=== PATIENT | female | born 1990 | race Caucasian/White ===

== ENCOUNTER 2021-03-25 15:29 | Inpatient (IN) ==
[2021-03-25] MEDS ORDERED: OXYTOCIN 30 UNITS/500 ML BAG IV PRN (22:59)
[2021-03-25 23:29] LABS: Hemoglobin 12.8 g/dL (12.0-16.0); Mean Corpuscular Hemoglobin 31.5 pg (25-34); Mean Corpuscular Hgb Conc 34.6 g/dL (32-36); Mean Corpuscular Volume 91.1 fL (80-100); Mean Platelet Volume 11.3 fL (7.4-10.4); Platelet Count 208 K/uL (130-400); RDW Standard Deviation 43.6 fL (36.4-46.3); Red Blood Count 4.06 M/uL (4.2-5.4); White Blood Count 9.37 K/uL (4.8-10.8)
[2021-03-25] MEDS ORDERED: DINOPROSTONE 10 MG INSERT PV ONE (23:45)
[2021-03-25 23:57] LABS: Alanine Aminotransferase 46 U/L (12-78); Albumin Level 2.2 gm/dl (3.4-5.0); Aspartate Aminotransferase 29 U/L (15-37); BUN Creatinine Ratio 16.2 (10-20); Blood Urea Nitrogen 8 mg/dl (7-18); Calcium 8.5 mg/dl (8.5-10.1); Carbon Dioxide 23 mmol/L (21-32); Chloride 109 mmol/L (98-107); Creatinine Clr Calc Pharmacy 207.8 ml/min; Est GFR (African American) > 150.0 ml/min; Est GFR (Non-African American) 135.4 ml/min; Glucose 104 mg/dl (70-99); Potassium 2.9 mmol/L (3.5-5.1); Sodium 140 mmol/L (136-145)
--- NOTE | 2021-03-26 | Progress Note ---
Date of Service March 25, 2021 Assessment & Plan Admission and Anticipated Discharge Date Admission Date: March 25, 2021 Subjective Pt admitted for mild preeclampsia FHR; CAT1 Ctx Minimal VE; Cervidil placed Results & Data ([facility]) Vital Signs (Past 12 Hours) Vital Signs Temp Pulse Resp BP 03/25/21 22:38 36.5 C 75 16 138/93
[2021-03-26 00:02] LABS: Albumin Globulin Ratio 0.6 (0.9-2); Alkaline Phosphatase 103 U/L (45-117); Bilirubin,Total 0.5 mg/dl (0.2-1); Globulin 3.7 gm/dl (2.5-4.0); Total Protein 5.9 gm/dl (6.4-8.2)
[2021-03-26] MEDS: LACTATED RINGER'S 1,000 ML IV PRN ×2 (14:40→16:53)
[2021-03-26] MEDS ORDERED: OXYTOCIN 30 UNITS/500 ML BAG IV PRN ×2 (14:54→19:19)
--- NOTE | 2021-03-26 14:54 | Labor Progress Brief Note ---
Date of Service March 26, 2021 Assessment & Plan Admission and Anticipated Discharge Date Admission Date: March 25, 2021 Physical Exam Genitourinary: OB Exam Abdomen: + estimated weight (7.5-8 lbs.) Manual OB Exam: + cervical dilation 3 cm and 4 cm, + cervical effacement 70% and + station -2 OB Exam Monitor Tracing: + external FHT monitor used, + external uterine monitor used, + category I and + normal FHT variability attempted ROM with no fluid. Will start Oxytocin to augment contractions. Results & Data ([facility]) Vital Signs (Past 12 Hours) Vital Signs Temp Pulse Resp BP 03/26/21 14:39 70 139/84 03/26/21 11:08 63 142/94 H 03/26/21 11:06 36.7 C 03/26/21 11:05 70 142/96 H 03/26/21 10:26 71 20 137/93 03/26/21 09:26 58 L 142/92 H 03/26/21 07:10 36.5 C 20 03/26/21 07:05 67 137/85 03/26/21 04:19 36.8 C 77 16 142/84 H
[2021-03-26] MEDS ORDERED: OXYTOCIN 30 UNITS/500 ML BAG IV SCH (15:00)
[2021-03-26] MEDS ORDERED: ePHEDrine sulfate 50 MG/ML AMP ONE (16:02)
[2021-03-26] MEDS ORDERED: fentaNYL citrate 100 MCG/2 ML VIAL ONE (16:02)
[2021-03-26] MEDS ORDERED: BUPIVACAINE 0.25% 30 ML VIAL ONE (16:02)
[2021-03-26] MEDS ORDERED: SODIUM CHLORIDE 0.9% INJ 10 ML VIAL ONE (16:02)
[2021-03-26] MEDS ORDERED: fentaNYL 2MCG/ML ROPIVACAINE 1.25MG/ML 100 ML BAG EPI ONE (16:03)
--- NOTE | 2021-03-26 16:20 | Anesthesiology Consultation ---
Date of Service March 26, 2021 Assessment & Plan Chart Review Chart Review: Acceptable Risk for Surgery, Patient NOT seen in Pre Admission Testing and Acceptable Risk for Labor Epidural Consults Requested none ASA ASA3 Proposed Anesthesia Anesthesia Type: Labor Epidural and CSE Risk / Benefits Reviewed With: PT / POA / Parent / Guardian, Accepts Plan and Informed Consent Obtained Additional Comments: covid test negative History Height/Weight Height: 5 ft 5 in Weight: 95.254 kg Allergies Allergy/AdvReac Type Severity Reaction Status Date / Time No Known Allergies Allergy Verified 07/19/18 01:02 Medications Home Medications Medication Instructions Recorded Confirmed Last Taken 1 tabs PO DAILY 06/26/18 03/25/21 03/25/21 aspirin [Baby Aspirin] 81 mg PO DAILY 03/25/21 03/25/21 03/25/21 Active Medications Generic Name Dose Route Start Last Admin Trade Name Freq PRN Reason Stop Dose Admin Lactated Ringer's 1,000 mls @ 125 mls/hr 03/25/21 22:59 03/26/21 15:55 Lr IV 03/27/21 22:58 999 mls/hr .Q8H PRN Infusion L&D Protocol Protocol Oxytocin 30 units in 500 mls @ 1 mls/hr 03/26/21 14:54 03/26/21 15:09 Pitocin IV 03/28/21 14:53 0.06 units/hr .Q24H PRN 1 mls/hr Labor Induction/Augmentation Administration Protocol 0.06 UNITS/HR NPO Date Last Intake of Fluids: 03/26/21 Time Last Intake of Fluids: 15:00 Date Last Intake of Solids: 03/26/21 Time Last Intake of Solids: 12:00 Past Medical History Medical History with 36 completed weeks gestation Exercise / Class Metabolic Activity II 4-5 Yardwork/Stairs/Walk up hill Past Family History Family History Grandfather Family history of diabetes mellitus Cancer Grandmother Family history of diabetes mellitus Past Surgical History Surgical History Cyst of ear canal Past Anesthesia History No Hx of Anesthesia Complications and No Family Hx of Anesthesia Complications History of PONV No Hx of PONV and No Hx of Motion Sickness Social History Smoking Status: Never smoker Hx Alcohol Use: No Hx Substance Use: No Physical Exam Vital Signs Last Vital Signs Temp 36.7 C 03/26/21 11:06 Pulse 63 03/26/21 16:12 Resp 20 03/26/21 10:26 BP 139/84 03/26/21 14:39 Pulse Ox 98 03/26/21 16:12 Constitutional + obese and + edematous ENMT Mouth: no dentition abnormality Thyromental Distance: < 3.5 Finger Breadths Mallampati Class: II Neck normal visual inspection and trachea midline; neck extension not limited Respiratory normal respiratory effort Auscultation: lungs clear to auscultation bilaterally Cardiovascular Rate/Rhythm: regular rate and regular rhythm Heart Sounds: no murmur Vessels: no carotid bruit Musculoskeletal Spine: lumbar spine normal to inspection; normal cervical ROM Neurologic moves all extremities Motor/Sensory: no sensory deficit Psychiatric Orientation: alert and oriented x 3 Testing Laboratory Results 03/25/21 23:16 03/25/21 23:31
[2021-03-26] MEDS ORDERED: ePHEDrine sulfate 50 MG/ML AMP IV PRN (16:58)
[2021-03-26] MEDS ORDERED: fentaNYL 2MCG/ML ROPIVACAINE 1.25MG/ML 100 ML BAG EPI PRN (16:58)
[2021-03-26] MEDS ORDERED: NALOXONE HCL 0.4 MG/1 ML VIAL/CARP IV PRN (16:58)
[2021-03-26] MEDS ORDERED: PROMETHAZINE HCL 25 MG in SODIUM CHLORIDE 0.9% 50 ML IV PRN (16:58)
[2021-03-26] MEDS ORDERED: ONDANSETRON INJ 2 MG/ML 2 ML VIAL IV PRN (16:58)
[2021-03-26] MEDS ORDERED: diphenhydrAMINE 50 MG/ML VIAL IV PRN (16:58)
[2021-03-26] MEDS ORDERED: NALOXONE HCL 1 MG in SODIUM CHLORIDE 0.9% 1000ML 1,000 ML IV PRN (16:58)
--- NOTE | 2021-03-26 17:03 | Labor Progress Brief Note ---
Date of Service March 26, 2021 Assessment & Plan Admission and Anticipated Discharge Date Admission Date: March 25, 2021 Physical Exam Genitourinary: Manual OB Exam: + cervical dilation 5 cm, + cervical effacement 70%, + station -1 and + amniotic fluid clear OB Exam Monitor Tracing: + external FHT monitor used, + external uterine monitor used, + category I and + normal FHT variability epidural in place Results & Data ([facility]) Vital Signs (Past 12 Hours) Vital Signs Temp Pulse Resp BP Pulse Ox 03/26/21 17:00 86 97 03/26/21 16:59 69 139/84 03/26/21 16:56 65 134/85 03/26/21 16:55 66 98 03/26/21 16:53 66 130/85 03/26/21 16:50 67 131/86 97 03/26/21 16:45 70 97 03/26/21 16:40 71 98 03/26/21 16:35 67 99 03/26/21 16:30 104 H 98 03/26/21 16:25 66 98 03/26/21 16:20 82 98 03/26/21 16:12 63 98 03/26/21 14:39 70 139/84 03/26/21 11:08 63 142/94 H 03/26/21 11:06 36.7 C 03/26/21 11:05 70 142/96 H 03/26/21 10:26 71 20 137/93 03/26/21 09:26 58 L 142/92 H 03/26/21 07:10 36.5 C 20 03/26/21 07:05 67 137/85
[2021-03-26] MEDS ORDERED: BENZOCAINE 20% AER SPR 82.5 GM CAN EXT PRN (19:19)
[2021-03-26] MEDS ORDERED: ACETAMINOPHEN 325 MG TAB PO PRN (19:19)
[2021-03-26] MEDS ORDERED: bisacodyL 10 MG SUPP PR PRN (19:19)
[2021-03-26] MEDS ORDERED: HYDROCORTISONE ACETATE 25 MG SUPP PR PRN (19:19)
[2021-03-26] MEDS ORDERED: SUPERCREAM 0.870% 15 GM JAR EXT PRN (19:19)
--- NOTE | 2021-03-26 19:21 | Delivery Summary ---
Vaginal Delivery Summary Date of Service March 26, 2021 Vaginal Delivery Summary Delivery Note live female VANI over intact perineum with delayed cord clamping and Apgars 8/9 weight pending. Cord blood obtained followed by spontaneous delivery of intact placenta. No tears. EBL 250 ml. Final sponge and instrument count are correct. Mom and baby stable. Stright cath used to empty the bladder at end of procedure.
--- NOTE | 2021-03-26 19:38 | Anesthesia Procedure Note ---
Date of Service March 26, 2021 Anesthesia Post Epidural Note Vital Signs Vital Signs: Temp Pulse Resp BP Pulse Ox 36.9 C 70 18 143/85 H 96 03/26/21 19:15 03/26/21 19:30 03/26/21 19:30 03/26/21 19:30 03/26/21 19:10 Pain Intensity Lower Abdomen: Pain Intensity: 0 Notes Mental Status: alert / awake / arousable Nausea / Vomiting: adequately controlled Pain: adequately controlled Airway Patency, RR, SpO2: stable & adequate BP & HR: stable & adequate Hydration State: stable & adequate Neuraxial Anesthesia: was administered and sensory block is resolving Anesthetic Complications: no major complications apparent Epidural: Removed without complications and With tip intact
[2021-03-26] MEDS: DOCUSATE SODIUM 100 MG CAP PO SCH (22:21)
[2021-03-27] MEDS: IBUPROFEN 600 MG TAB PO PRN ×4 (04:02→21:14)
[2021-03-27 06:16] LABS: Hematocrit (blood only) 35.2 % (37-47); Mean Corpuscular Hemoglobin 31.2 pg (25-34); Mean Corpuscular Hgb Conc 34.1 g/dL (32-36); Mean Corpuscular Volume 91.4 fL (80-100); Mean Platelet Volume 11.6 fL (7.4-10.4); Platelet Count 199 K/uL (130-400); RDW Standard Deviation 43.5 fL (36.4-46.3); Red Blood Count 3.85 M/uL (4.2-5.4); White Blood Count 12.73 K/uL (4.8-10.8)
[2021-03-27] MEDS: DOCUSATE SODIUM 100 MG CAP PO SCH ×2 (08:00→21:09)
[2021-03-27] MEDS: PRENATAL VITAMIN 1 TAB PO SCH (08:00)
[2021-03-27] MEDS: LABETALOL HCL 100 MG TAB PO SCH ×2 (08:39→21:09)
[2021-03-27] MEDS ORDERED: PRENATAL PO SCH (09:00)
[2021-03-27] MEDS ORDERED: DIPHTHERIA/TETANUS/PERTUSSIS 0.5 ML SYR/VIAL IM ONE (09:00)
--- NOTE | 2021-03-27 10:15 | Obstetrical Progress Note ---
Date of Service March 27, 2021 Subjective Ambulation: ambulating normally Voiding: no voiding problems Passing Gas:: Yes Diet Tolerance:: regular diet Lochia:: Small Feeding Type:: breast feeding no headaches or blurred vision minimal edema will start Labetalol for elevated BP Results & Data ([facility]) Vital Signs (Past 12 Hours) Vital Signs Temp Pulse Resp BP BP Pulse Ox 03/27/21 08:00 62 161/97 H 03/27/21 07:05 36.7 C 66 20 157/103 H 98 03/27/21 03:40 36.7 C 69 18 140/89 03/26/21 22:45 36.8 C 79 18 137/84 98 Laboratory Results 03/25/21 03/25/21 03/25/21 22:37 22:37 23:16 WBC 9.37 RBC 4.06 L Hgb 12.8 Hct 37.0 MCV 91.1 MCH 31.5 MCHC 34.6 RDW Std Deviation 43.6 RDW Coeff of Praveena 13.0 Plt Count 208 MPV 11.3 H Sodium Potassium Chloride Carbon Dioxide Anion Gap BUN Creatinine Est Cr Clr Drug Dosing Est GFR ( Amer) Est GFR (Non-Af Amer) BUN/Creatinine Ratio Glucose Calcium Total Bilirubin AST ALT Alkaline Phosphatase Total Protein Albumin Globulin Albumin/Globulin Ratio COVID-19 Eval Order Covid19 [facility] SARS-CoV-2, RNA, NAAT NEGATIVE 03/25/21 03/27/21 23:31 06:03 WBC 12.73 H RBC 3.85 L Hgb 12.0 Hct 35.2 L MCV 91.4 MCH 31.2 MCHC 34.1 RDW Std Deviation 43.5 RDW Coeff of Praveena 13.0 Plt Count 199 MPV 11.6 H Sodium 140 Potassium 2.9 L Chloride 109 H Carbon Dioxide 23 Anion Gap 8.0 BUN 8 Creatinine 0.46 L Est Cr Clr Drug Dosing 207.8 Est GFR ( Amer) > 150.0 Est GFR (Non-Af Amer) 135.4 BUN/Creatinine Ratio 16.2 Glucose 104 H Calcium 8.5 Total Bilirubin 0.5 AST 29 ALT 46 Alkaline Phosphatase 103 Total Protein 5.9 L Albumin 2.2 L Globulin 3.7 Albumin/Globulin Ratio 0.6 L COVID-19 Eval Order SARS-CoV-2, RNA, NAAT
[2021-03-27] MEDS ORDERED: bisacodyL 5 MG TABEC PO SCH (20:00)
[2021-03-28 06:30] LABS: Hematocrit (blood only) 34.3 % (37-47); Hemoglobin 11.4 g/dL (12.0-16.0); Mean Corpuscular Hemoglobin 30.7 pg (25-34); Mean Corpuscular Hgb Conc 33.2 g/dL (32-36); Mean Corpuscular Volume 92.5 fL (80-100); Mean Platelet Volume 11.4 fL (7.4-10.4); Platelet Count 206 K/uL (130-400); RDW Coefficient of Variation 13.2 % (11.5-14.5); RDW Standard Deviation 44.5 fL (36.4-46.3); Red Blood Count 3.71 M/uL (4.2-5.4)
[2021-03-28 06:59] LABS: Bilirubin Direct 0.1 mg/dl (0-0.2); Bilirubin,Total 0.5 mg/dl (0.2-1); Total Protein 5.4 gm/dl (6.4-8.2)
[2021-03-28] MEDS: IBUPROFEN 600 MG TAB PO PRN (08:17)
[2021-03-28] MEDS: DOCUSATE SODIUM 100 MG CAP PO SCH (08:17)
[2021-03-28] MEDS: PRENATAL VITAMIN 1 TAB PO SCH (08:17)
[2021-03-28] MEDS: LABETALOL HCL 100 MG TAB PO SCH (08:17)
--- NOTE | 2021-03-28 08:57 | Obstetrical Progress Note ---
Date of Service March 28, 2021 Physical Exam Constitutional WD/WN, vitals as above comfortable fundus firm non-tender no edema neg Yohana's for d/c f/u in office this week for BP check Results & Data ([facility]) Vital Signs (Past 12 Hours) Vital Signs Temp Pulse Pulse Resp BP BP 03/28/21 08:03 36.7 C 76 21 148/95 H 03/28/21 05:10 76 154/101 H 153/97 H 03/27/21 23:45 36.8 C 67 18 144/89 H 03/27/21 21:10 36.7 C 69 18 138/88 Laboratory Results Laboratory Results - last 72 hr 03/25/21 03/25/21 03/25/21 22:37 22:37 23:16 WBC 9.37 RBC 4.06 L Hgb 12.8 Hct 37.0 MCV 91.1 MCH 31.5 MCHC 34.6 RDW Std Deviation 43.6 RDW Coeff of Praveena 13.0 Plt Count 208 MPV 11.3 H Sodium Potassium Chloride Carbon Dioxide Anion Gap BUN Creatinine Est Cr Clr Drug Dosing Est GFR ( Amer) Est GFR (Non-Af Amer) BUN/Creatinine Ratio Glucose Calcium Total Bilirubin Direct Bilirubin AST ALT Alkaline Phosphatase Total Protein Albumin Globulin Albumin/Globulin Ratio COVID-19 [facility] SARS-CoV-[facility], RNA, NAAT NEGATIVE 03/25/21 03/27/21 03/28/21 23:31 06:03 05:54 WBC 12.73 H 10.10 RBC 3.85 L 3.71 L Hgb 12.0 11.4 L Hct 35.2 L 34.3 L MCV 91.4 92.5 MCH 31.2 30.7 MCHC 34.1 33.2 RDW Std Deviation 43.5 44.5 RDW Coeff of Praveena 13.0 13.2 Plt Count 199 206 MPV 11.6 H 11.4 H Sodium 140 Potassium 2.9 L Chloride 109 H Carbon Dioxide 23 Anion Gap 8.0 BUN 8 Creatinine 0.46 L Est Cr Clr Drug Dosing 207.8 Est GFR ( Amer) > 150.0 Est GFR (Non-Af Amer) 135.4 BUN/Creatinine Ratio 16.2 Glucose 104 H Calcium 8.5 Total Bilirubin 0.5 Direct Bilirubin AST 29 ALT 46 Alkaline Phosphatase 103 Total Protein 5.9 L Albumin 2.2 L Globulin 3.7 Albumin/Globulin Ratio 0.6 L COVID-19 Eval Order SARS-CoV-2, RNA, NAAT 03/28/21 05:54 WBC RBC Hgb Hct MCV MCH MCHC RDW Std Deviation RDW Coeff of Praveena Plt Count MPV Sodium Potassium Chloride Carbon Dioxide Anion Gap BUN Creatinine Est Cr Clr Drug Dosing Est GFR ( Amer) Est GFR (Non-Af Amer) BUN/Creatinine Ratio Glucose Calcium Total Bilirubin 0.5 Direct Bilirubin 0.1 AST 21 ALT 36 Alkaline Phosphatase 78 Total Protein 5.4 L Albumin 2.0 L Globulin Albumin/Globulin Ratio COVID-19 Eval Order SARS-CoV-2, RNA, NAAT
[2021-03-28] MEDS ORDERED: LABETALOL HCL 100 MG TAB PO ONE (09:15)
[2021-03-28] MEDS ORDERED: LABETALOL HCL 200 MG TAB PO SCH (21:00)
== END 2021-03-28 11:30 | disposition home or self-care (01) | DRG 807 ==
LOC: 4S1 22:18 → 4S2 03-26 22:22

== ENCOUNTER 2022-10-09 18:34 | Observation (INO) ==
[2022-10-09] MEDS ORDERED: SODIUM CHLORIDE 0.9% 1000ML 1,000 ML IV ONE (19:00)
--- NOTE | 2022-10-09 19:00 | Emergency Department Note ---
Impression & Plan Incomplete , Vaginal bleeding ED Provider Note NAME: DAVID SUMMERS AGE: 31 SEX: F : 1990 ARRIVES VIA: Ambulance INFORMANT: Patient ED PROVIDER(S): Betito Logan DO CHIEF COMPLAINT: vaginal bleeding HPI: Patient is a 31-year-old female who presents to the ER for vaginal bleeding. She notes she is a with twins 8 weeks . She had an ultrasound which showed they were nonviable. [facility] She notes she has been having vaginal bleeding which started yesterday and was very light. Around 5 PM tonight she started passing large amount of clots. She went through 2 pads. She did pass out as she was passing a large amounts of for size clots and having pain and was sick to her stomach. Denies any head or neck pain. No chest pain or shortness of breath. No other exacerbating or remitting factors. Pain is about 3 out of 10 currently. ROS: See above HPI for pertinent positives & negatives. A total of 10 systems reviewed and were otherwise negative. PAST MEDICAL HISTORY:See Below PAST SURGICAL HISTORY:See Below FAMILY HISTORY:See Below SOCIAL HISTORY:See Below HOME MEDICATIONS:See Below ALLERGIES:See Below VITALS:See Below PHYSICAL EXAMINATION: GENERAL: Sitting up in bed, alert, well appearing, well nourished, no distress, non-toxic EYE EXAM: normal conjunctiva. OROPHARYNX: no exudate, no erythema, lips, buccal mucosa, and tongue normal and mucous membranes are moist NECK: supple, no nuchal rigidity, no adenopathy, non-tender LUNGS: Clear to auscultation. Normal chest wall mechanics HEART: no murmurs, S1 normal and S2 normal ABDOMEN: abdomen soft, non-tender, normo-active bowel sounds, no masses, no rebound or guarding. : Dried blood over the external genitalia. Large clot partially removed and blood was suctioned UPPER EXTREMITIES: upper extremities are grossly normal. LOWER EXTREMITIES: No pitting edema. NEURO EXAM: Normal sensorium, cranial nerves II-XII grossly intact, normal speech, no gross weakness of arms, no gross weakness of legs. MEDICAL DECISION MAKING: Patient is a 23-year-old female who presents ER for the boasting complaint. IV was established blood work was obtained. Labs show mild leukocytosis 11,000. Hemoglobin 12.6 down from 14. INR unremarkable. BMP LFTs bilirubin was unremarkable. hCG 3600. COVID-negative. Patient was typed and screened. Ultrasound shows a 4 cm cystic structure in the cervix. Attempted to partially remove this at bedside but was unsuccessful. Consulted [facility] and they took her to the OR. Pt was given IV fluids while resting in the ER. Triage Nursing notes reviewed. Limited review of prior medical records performed Vital Signs: reviewed and remarkable for no significant abnormalities Differential diagnosis: Differential diagnoses includes but is not limited to appendicitis, diverticulitis, small bowel obstruction, malignancy, hernia, urinary tract infection, torsion, and ectopic (if female), perforation, tr auma, infectious. ER treatment provided: See below Diagnostics interpreted by me: ECG: none Cardiac Monitoring: An order was placed for continuous cardiac monitoring. The monitor shows a rate of 90 with sinus rhythm. Laboratory studies: As stated above and show below. Imaging studies: Ultrasound as described above Consultation(s): Discussed with Dr. Zuniga who evaluate the patient bedside and took the Pt to the OR Procedures: none Critical Care: None Past Med/Surg History Medical History hemorrhage Preeclampsia with 36 completed weeks gestation Surgical History Cyst of ear canal Family History Grandfather Family history of diabetes mellitus Cancer Grandmother Family history of diabetes mellitus Social History Smoking Status: Never smoker Second Hand Exposure: No; Hx Alcohol Use: No Hx Substance Use: No Preferred Language: [place] Communication Ability: Effective Sole Sewer Hand Required: No Beliefs That Will Affect Care: None marital status: Current Living Situation: Spouse and Family Current Living Situation Comment: inlaws also live with patient Feels Safe at Home: Yes Assistive Devices: None Allergies Allergies Allergy/AdvReac Type Severity Reaction Status Date / Time No Known Allergies Allergy Verified 10/09/22 20:16 Home Meds Home Medications Medication Instructions Recorded Confirmed vit no.133-ferrous 1 tab PO DAILY 03/31/21 10/09/22 fumarate 28 mg-folic acid 800 mcg tablet () Previous Rx's Medication Instructions Recorded ibuprofen 600 mg tablet 600 mg PO Q6H PRN fever or pain 10/10/22 #30 tabs Results & Data (ED) Vital Signs Vital Signs - 24 hr 10/09/22 19:23 10/09/22 18:54 10/09/22 19:30 Temperature 36.7 C Temperature Source Oral Pulse Rate 77 98 H Pulse Rate [Apical] Pulse Rate from SpO2 Sensor 97 H Pulse Rhythm [Apical] Pulse Strength [Apical] Respiratory Rate 18 13 Respiratory Effort / Characteristics Non-Labored Spontaneous Respiratory Depth Normal Respiratory Pattern Blood Pressure 101/59 L 93/49 L Blood Pressure [Right Arm] Blood Pressure Mean 73 63 Blood Pressure Mean [Right Arm] Blood Pressure Position [Right Arm] Pulse Oximetry 99 97 100 Oxygen Delivery Method Room Air Room Air Sepsis Recent Fever Within 48 Hours No Sepsis New/Unexplained Change in Mental Status N/A Sepsis Action Taken by Nursing No Action Required 10/09/22 21:05 10/09/22 21:30 10/09/22 22:00 Temperature Temperature Source Pulse Rate 103 H 84 95 H Pulse Rate [Apical] Pulse Rate from SpO2 Sensor Pulse Rhythm [Apical] Pulse Strength [Apical] Respiratory Rate 24 22 17 Respiratory Effort / Characteristics Respiratory Depth Respiratory Pattern Blood Pressure 91/66 L 90/63 L 88/50 L Blood Pressure [Right Arm] Blood Pressure Mean 74 72 62 Blood Pressure Mean [Right Arm] Blood Pressure Position [Right Arm] Pulse Oximetry Oxygen Delivery Method Sepsis Recent Fever Within 48 Hours Sepsis New/Unexplained Change in Mental Status Sepsis Action Taken by Nursing 10/09/22 22:30 10/09/22 23:00 10/10/22 00:38 Temperature 36.6 C Temperature Source Oral Pulse Rate 88 90 Pulse Rate [Apical] 106 H Pulse Rate from SpO2 Sensor Pulse Rhythm [Apical] Regular Pulse Strength [Apical] Normal Respiratory Rate 18 20 19 Respiratory Effort / Characteristics Non-Labored Spontaneous Respiratory Depth Normal Respiratory Pattern Regular Blood Pressure 82/48 L 77/46 L Blood Pressure [Right Arm] 107/51 L Blood Pressure Mean 59 56 Blood Pressure Mean [Right Arm] 69 Blood Pressure Position [Right Arm] Semi-fowlers Pulse Oximetry 99 Oxygen Delivery Method Room Air Sepsis Recent Fever Within 48 Hours Sepsis New/Unexplained Change in Mental Status Sepsis Action Taken by Nursing 10/10/22 00:47 Temperature 36.5 C Temperature Source Oral Pulse Rate Pulse Rate [Apical] 100 H Pulse Rate from SpO2 Sensor Pulse Rhythm [Apical] Regular Pulse Strength [Apical] Normal Respiratory Rate 19 Respiratory Effort / Characteristics Non-Labored Spontaneous Respiratory Depth Normal Respiratory Pattern Regular Blood Pressure Blood Pressure [Right Arm] 107/66 Blood Pressure Mean Blood Pressure Mean [Right Arm] 79 Blood Pressure Position [Right Arm] Semi-fowlers Pulse Oximetry 99 Oxygen Delivery Method Room Air Sepsis Recent Fever Within 48 Hours Sepsis New/Unexplained Change in Mental Status Sepsis Action Taken by Nursing Laboratory Data Result diagrams: 10/09/22 19:00 10/09/22 19:00 Lab Results 10/09/22 10/09/22 10/09/22 Range/Units 19:00 19:00 19:00 WBC 11.27 H (4.8-10.8) K/ul RBC 4.23 (3.93-5.22) M/uL Hgb 12.6 (12.0-16.0) g/dl Hct 36.9 (34.1-44.9) % MCV 87.2 (80.0-100.0) fL MCH 29.8 (25.0-34.0) pg MCHC 34.1 (32.0-36.0) g/dL RDW Std Deviation 39.3 (36.4-46.3) fL RDW Coeff of Praveena 12.4 (11.5-14.5) % Plt Count 282 (130-400) K/uL MPV 9.8 (9.4-12.3) fL Immature Gran % (Auto) 0.4 % Neut % (Auto) 70.9 % Lymph % (Auto) 22.6 % [place] % (Auto) 4.5 % Eos % (Auto) 1.2 % Baso % (Auto) 0.4 % Neut # (Auto) 7.98 H (1.4-6.5) K/uL Lymph # (Auto) 2.55 (1.2-3.4) K/uL [place] # (Auto) 0.51 (0.24-0.82) K/uL Eos # (Auto) 0.14 (0-0.50) K/uL Baso # (Auto) 0.04 (0-0.2) K/uL Immature Gran # (Auto) 0.05 H (0.00-0.02) K/uL PT 10.5 (9.0-12.0) Seconds INR 1.0 (0.9-1.1) Sodium (136-145) mmol/L Potassium (3.5-5.1) mmol/L Chloride (98-107) mmol/L Carbon Dioxide (21-32) mmol/L Anion Gap (3-11) BUN (6-23) mg/dl Creatinine (0.6-1.2) mg/dl Est Cr Clr Drug Dosing ml/min Est GFR ( Amer) ml/min Est GFR (Non-Af Amer) ml/min BUN/Creatinine Ratio (10-20) Glucose (70-99(Fasting)) mg/dl Calcium (8.5-10.1) mg/dl Total Bilirubin (0.2-1.0) mg/dl AST (13-39) U/L ALT (7-52) U/L Alkaline Phosphatase (34-104) U/L Total Protein (6.0-8.3) gm/dl Albumin (3.4-5.0) gm/dl Globulin (2.5-4.0) gm/dl Albumin/Globulin Ratio (0.9-2) HCG, Quant mIU/ml SARS-CoV-2, RNA, NAAT (NEGATIVE) Blood Type A Positive Antibody Screen NEGATIVE 10/09/22 10/09/22 10/09/22 Range/Units 19:00 19:00 Unknown WBC (4.8-10.8) K/ul RBC (3.93-5.22) M/uL Hgb (12.0-16.0) g/dl Hct (34.1-44.9) % MCV (80.0-100.0) fL MCH (25.0-34.0) pg MCHC (32.0-36.0) g/dL RDW Std Deviation (36.4-46.3) fL RDW Coeff of Praveena (11.5-14.5) % Plt Count (130-400) K/uL MPV (9.4-12.3) fL Immature Gran % (Auto) % Neut % (Auto) % Lymph % (Auto) % [place] % (Auto) % Eos % (Auto) % Baso % (Auto) % Neut # (Auto) (1.4-6.5) K/uL Lymph # (Auto) (1.2-3.4) K/uL [place] # (Auto) (0.24-0.82) K/uL Eos # (Auto) (0-0.50) K/uL Baso # (Auto) (0-0.2) K/uL Immature Gran # (Auto) (0.00-0.02) K/uL PT (9.0-12.0) Seconds INR (0.9-1.1) Sodium 137 (136-145) mmol/L Potassium 3.6 (3.5-5.1) mmol/L Chloride 106 (98-107) mmol/L Carbon Dioxide 25 (21-32) mmol/L Anion Gap 6 (3-11) BUN 12 (6-23) mg/dl Creatinine 0.55 L (0.6-1.2) mg/dl Est Cr Clr Drug Dosing 157.3 ml/min Est GFR ( Amer) 146.9 ml/min Est GFR (Non-Af Amer) 126.8 ml/min BUN/Creatinine Ratio 21.8 H (10-20) Glucose 118 H (70-99(Fasting)) mg/dl Calcium 9.1 (8.5-10.1) mg/dl Total Bilirubin 0.3 (0.2-1.0) mg/dl AST 18 (13-39) U/L ALT 27 (7-52) U/L Alkaline Phosphatase 34 (34-104) U/L Total Protein 6.9 (6.0-8.3) gm/dl Albumin 4.0 (3.4-5.0) gm/dl Globulin 2.9 (2.5-4.0) gm/dl Albumin/Globulin Ratio 1.4 (0.9-2) HCG, Quant 3686 mIU/ml SARS-CoV-2, RNA, NAAT NEGATIVE (NEGATIVE) Blood Type Antibody Screen Administered Medications Discontinued Medications Sodium Chloride (Nss 1000ml) 1,000 mls @ 999 mls/hr IV .Q1H1M ONE Stop: 10/09/22 20:00 Last Admin: 10/09/22 19:24 Dose: 999 mls/hr Documented By: JORDAN Imaging Data Radiologist's Impression: Ultrasound 10/09/22 18:54 ULTRASOUND OF THE PELVIS CLINICAL HISTORY: Vaginal bleeding. Pelvic pain. Reported history of twin gestation. COMPARISON STUDY: No prior studies are available for comparison at the time of dictation. TECHNIQUE: Real-time, grayscale, and color flow sonography of the pelvis is performed transabdominally. Images are reviewed in the transverse and longitudinal planes. The patient declined the endovaginal examination. FINDINGS: Uterus: The uterus is normal in size and echotexture, measuring 10.9 x 5.4 x 6.4 cm. Endometrium: The endometrium appears thickened and heterogeneous measuring up to 1.8 cm. No acute uterine gestation is identified. A 3.4 x 2.1 x 1.9 cm cystic structure is noted in the cervix. No parts are identified. Ovaries: The ovaries are normal in size and morphology. The right ovary measures 2.8 x 1.6 x 2.7 cm and the left ovary measures 2.9 x 1.9 x 1.9 cm. Normal Doppler waveforms are shown within both ovaries. Pelvis: There is a small volume of simple appearing free fluid in the cul-de-sac. No concerning adnexal lesion is seen. IMPRESSION: 1. No intrauterine gestation is identified, and a 3.4 cm cystic focus is present in the cervix. This likely represents an in progress given the reported history of an intrauterine gestation at an outside institution. No concerning adnexal lesion is identified. If intrauterine gestation has not been confirmed, an ectopic would be impossible to exclude. Correlate with outside imaging. Close clinical, laboratory, and sonographic follow-up is recommended. 2. The ovaries are normal as visualized. 3. A small volume of nonspecific free fluid is seen in the cul-de-sac. ACT 112: Negative or not required by law. Electronically signed by: Alberto Connolly M.D. 10/09/2022 9:05 PM Discharge Plan Visit Data Chief Complaint: Vaginal Bleeding ED Provider: Betito Logan Discharge Problem: Incomplete , Vaginal bleeding Patient Disposition: Admitted As Inpatient Condition: Good Discharge Instructions Interventions: ED Discharge Assessment Last Done: 10/10/22 00:03
[2022-10-09 19:11] LABS: Basophils # (auto) 0.04 K/uL (0-0.2); Basophils % (auto) 0.4 %; Eosinophils # (auto) 0.14 K/uL (0-0.50); Eosinophils % (auto) 1.2 %; Hematocrit (blood only) 36.9 % (34.1-44.9); Hemoglobin 12.6 g/dl (12.0-16.0); Immature Granulocytes # (auto) 0.05 K/uL (0.00-0.02); Immature Granulocytes % (auto) 0.4 %; Lymphocytes # (auto) 2.55 K/uL (1.2-3.4); Lymphocytes % (auto) 22.6 %; Mean Corpuscular Hemoglobin 29.8 pg (25.0-34.0); Mean Corpuscular Hgb Conc 34.1 g/dL (32.0-36.0); Mean Corpuscular Volume 87.2 fL (80.0-100.0); Mean Platelet Volume 9.8 fL (9.4-12.3); Monocytes # (auto) 0.51 K/uL (0.24-0.82); Monocytes % (auto) 4.5 %; Neutrophils # (auto) 7.98 K/uL (1.4-6.5); Neutrophils % (auto) 70.9 %; Platelet Count 282 K/uL (130-400); RDW Coefficient of Variation 12.4 % (11.5-14.5); RDW Standard Deviation 39.3 fL (36.4-46.3); Red Blood Count 4.23 M/uL (3.93-5.22); White Blood Count 11.27 K/ul (4.8-10.8)
[2022-10-09 19:20] LABS: Prothrombin Time 10.5 Seconds (9.0-12.0)
[2022-10-09 19:49] LABS: Albumin Globulin Ratio 1.4 (0.9-2); BUN Creatinine Ratio 21.8 (10-20); Bilirubin,Total 0.3 mg/dl (0.2-1.0); Calcium 9.1 mg/dl (8.5-10.1); Creatinine Clr Calc Pharmacy 157.3 ml/min; Est GFR (African American) 146.9 ml/min; Est GFR (Non-African American) 126.8 ml/min; Globulin 2.9 gm/dl (2.5-4.0); Potassium 3.6 mmol/L (3.5-5.1); Total Protein 6.9 gm/dl (6.0-8.3)
--- NOTE | 2022-10-09 21:07 | Ultrasound Report ---
ULTRASOUND OF THE PELVIS CLINICAL HISTORY: Vaginal bleeding. Pelvic pain. Reported history of twin gestation. COMPARISON STUDY: No prior studies are available for comparison at the time of dictation. TECHNIQUE: Real-time, grayscale, and color flow sonography of the pelvis is performed transabdominall y. Images are reviewed in the transverse and longitudinal planes. The patient declined the endovagina l examination. FINDINGS: Uterus: The uterus is normal in size and echotexture, measuring 10.9 x 5.4 x 6.4 cm. Endometrium: The endometrium appears thickened and heterogeneous measuring up to 1.8 cm. No acute margaret rine gestation is identified. A 3.4 x 2.1 x 1.9 cm cystic structure is noted in the cervix. No parts are identified. Ovaries: The ovaries are normal in size and morphology. The right ovary measures 2.8 x 1.6 x 2.7 cm a nd the left ovary measures 2.9 x 1.9 x 1.9 cm. Normal Doppler waveforms are shown within both ovaries . Pelvis: There is a small volume of simple appearing free fluid in the cul-de-sac. No concerning adnex al lesion is seen. IMPRESSION: 1. No intrauterine gestation is identified, and a 3.4 cm cystic focus is present in the cervix. This likely represents an in progress given the reported history of an intrauterine gestation at an outside institution. No concerning adnexal lesion is identified. If intrauterine gestation has not been confirmed, an ectopic would be impossible to exclude. Correlate with outside imaging. Close clinical, laboratory, and sonographic follow-up is recommended. 2. The ovaries are normal as visualized. 3. A small volume of nonspecific free fluid is seen in the cul-de-sac. ACT 112: Negative or not required by law. Electronically signed by: Alberto Connolly M.D. 10/09/2022 9:05 PM
[2022-10-09] MEDS ORDERED: ONDANSETRON INJ 2 MG/ML 2 ML VIAL IV PRN ×2 (22:41→23:26)
[2022-10-09] MEDS ORDERED: LACTATED RINGER'S 1,000 ML IV SCH (22:45)
--- NOTE | 2022-10-09 22:49 | History & Physical Report ---
Date of Service October 09, 2022 Assessment & Plan (1) Incomplete : Plan: D&E in OR planned History of Present Illness Chief Complaint: vaginal bleeding Primary Care Provider: Sanjay Lafleur MD 31 F P2002 at 8 weeks gestation with faiked IUP on [id number] with twin at 8 weeks. Patient started bleeding today with large clots and increased cramping noted. Allergies Allergy/AdvReac Type Severity Reaction Status Date / Time No Known Allergies Allergy Verified 10/09/22 20:16 Home Medications Medication Instructions Recorded Confirmed Type vit no.133-ferrous 1 tab PO DAILY 03/31/21 10/09/22 History fumarate 28 mg-folic acid 800 mcg tablet () Patient History Medical History hemorrhage Preeclampsia with 36 completed weeks gestation Surgical History Cyst of ear canal Family History Grandfather Family history of diabetes mellitus Cancer Grandmother Family history of diabetes mellitus Social History Smoking Status: Never smoker Second Hand Exposure: No; Hx Alcohol Use: No Hx Substance Use: No Preferred Language: Czech Communication Ability: Effective 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 Beliefs That Will Affect Care: None marital status: Current Living Situation: Spouse and Family Current Living Situation Comment: inlaws also live with patient Feels Safe at Home: Yes Assistive Devices: None OB History x2 history of pre-eclampsia HEAD SAWYER History neg Review of Systems All systems reviewed & are unremarkable except as noted in HPI & below Physical Exam Constitutional: WD/WN, vitals as above Eyes: PERRL, conjunctivae normal, anicteric sclerae Neck: trachea midline, no thyromegaly Respiratory: normal respiratory effort, lungs clear to auscultation Cardiovascular: RRR, no murmur, no edema Rate/Rhythm: regular rate and regular rhythm Gastrointestinal (Abdomen): Inspection/Auscultation: abdomen normal to i nspection Skin: no rashes, warm and dry Neurologic: patellar DTR's 2+ bilat, sensation intact Psychiatric: A+Ox3, euthymic affect Genitourinary: no vaginal lesions, no adnexal mass Speculum/Bimanual Exam: + vaginal bleeding products of conception at os with bleeding and large clots Results & Data ([facility]) Vital Signs (Past 12 Hours) Vital Signs Temp Pulse Resp BP Pulse Ox O2 Del Method 10/09/22 21:05 103 H 24 91/66 L 10/09/22 19:30 98 H 13 93/49 L 100 10/09/22 18:54 97 Room Air 10/09/22 19:23 36.7 C 77 18 101/59 L 99 Room Air Laboratory Results 10/09/22 10/09/22 10/09/22 19:00 19:00 19:00 WBC 11.27 H RBC 4.23 Hgb 12.6 Hct 36.9 MCV 87.2 MCH 29.8 MCHC 34.1 RDW Std Deviation 39.3 RDW Coeff of Praveena 12.4 Plt Count 282 MPV 9.8 Immature Gran % (Auto) 0.4 Neut % (Auto) 70.9 Lymph % (Auto) 22.6 Hart % (Auto) 4.5 Eos % (Auto) 1.2 Baso % (Auto) 0.4 Neut # (Auto) 7.98 H Lymph # (Auto) 2.55 Hart # (Auto) 0.51 Eos # (Auto) 0.14 Baso # (Auto) 0.04 Immature Gran # (Auto) 0.05 H PT 10.5 INR 1.0 Sodium Potassium Chloride Carbon Dioxide Anion Gap BUN Creatinine Est Cr Clr Drug Dosing Est GFR ( Amer) Est GFR (Non-Af Amer) BUN/Creatinine Ratio Glucose Calcium Total Bilirubin AST ALT Alkaline Phosphatase Total Protein Albumin Globulin Albumin/Globulin Ratio HCG, Quant Blood Type A Positive Antibody Screen NEGATIVE 10/09/22 10/09/22 19:00 19:00 WBC RBC Hgb Hct MCV MCH MCHC RDW Std Deviation RDW Coeff of Praveena Plt Count MPV Immature Gran % (Auto) Neut % (Auto) Lymph % (Auto) Hart % (Auto) Eos % (Auto) Baso % (Auto) Neut # (Auto) Lymph # (Auto) Hart # (Auto) Eos # (Auto) Baso # (Auto) Immature Gran # (Auto) PT INR Sodium 137 Potassium 3.6 Chloride 106 Carbon Dioxide 25 Anion Gap 6 BUN 12 Creatinine 0.55 L Est Cr Clr Drug Dosing 157.3 Est GFR ( Amer) 146.9 Est GFR (Non-Af Amer) 126.8 BUN/Creatinine Ratio 21.8 H Glucose 118 H Calcium 9.1 Total Bilirubin 0.3 AST 18 ALT 27 Alkaline Phosphatase 34 Total Protein 6.9 Albumin 4.0 Globulin 2.9 Albumin/Globulin Ratio 1.4 HCG, Quant 3686 Blood Type Antibody Screen Code Status & VTE Plan VTE Prophylaxis Plan VTE Prophylaxis will be ordered: No
[2022-10-09] MEDS ORDERED: SILVER NITR/POTASSIUM NITRATE APPLICATOR ONE (23:22)
[2022-10-09] MEDS ORDERED: ATROPINE SULFATE 0.1 MG/ML 10ML SYR IV PRN (23:26)
[2022-10-09] MEDS ORDERED: MEPERIDINE HCL 25 MG/ML CARP/VIAL IV PRN (23:26)
[2022-10-09] MEDS ORDERED: ePHEDrine sulfate 50 MG/ML AMP IV PRN (23:26)
[2022-10-09] MEDS ORDERED: LABETALOL HCL IV 5 MG/ML 20ML IV PRN (23:26)
[2022-10-09] MEDS ORDERED: HYDROmorphone INJ 1 MG/ML SYRINGE IV PRN (23:26)
[2022-10-09] MEDS ORDERED: fentaNYL citrate 100 MCG/2 ML VIAL IV PRN (23:26)
[2022-10-09] MEDS ORDERED: PHENYLEPHRINE 100MCG/ML 5ML SYR IV PRN (23:26)
--- NOTE | 2022-10-09 23:30 | Anesthesiology Consultation ---
Date of Service October 09, 2022 Assessment & Plan (1) Encounter for pre-operative examination: Chart Review Chart Review: Acceptable Risk for Surgery and Patient NOT seen in Pre Admission Testing Consults Requested none History Surgery Operation Date: 10/09/22 23:45 Proposed Procedures p Dilation and Evacuation - Ramos Rosales MD Height/Weight Height: 5 ft 5 in Weight: 79.5 kg Allergies Allergy/AdvReac Type Severity Reaction Status Date / Time No Known Allergies Allergy Verified 10/09/22 20:16 Medications Home Medications Medication Instructions Recorded Confirmed Last Taken vit no.133-ferrous 1 tab PO DAILY 03/31/21 10/09/22 03/31/21 fumarate 28 mg-folic acid 800 mcg tablet () Past Medical History Medical History hemorrhage Preeclampsia with 36 completed weeks gestation Past Family History Family History Grandfather Family history of diabetes mellitus Cancer Grandmother Family history of diabetes mellitus Past Surgical History Surgical History Cyst of ear canal Social History Smoking Status: Never smoker Hx Alcohol Use: No Hx Substance Use: No Physical Exam Vital Signs Last Vital Signs Temp 36.7 C 10/09/22 19:23 Pulse 103 H 10/09/22 21:05 Resp 24 10/09/22 21:05 BP 91/66 L 10/09/22 21:05 Pulse Ox 100 10/09/22 19:30 O2 Del Method 10/09/22 19:23 Testing Laboratory Results 10/09/22 19:00 10/09/22 19:00 PT 10.5 Seconds (9.0-12.0) 10/09/22 19:00 INR 1.0 (0.9-1.1) 10/09/22 19:00 HCG, Quant 3686 mIU/ml 10/09/22 19:00 Blood Type A Positive 10/09/22 19:00 Antibody Screen NEGATIVE 10/09/22 19:00 10/09/22 19:00 HCG, Quant 3686 Electrocardiogram Date: 04/01/21 DICTATED BY:Gen Bahena MD Test Reason : Blood Pressure : / mmHG Vent. Rate : 057 BPM Atrial Rate : 057 BPM P-R Int : 148 ms QRS Dur : 086 ms QT Int : 428 ms P-R-T Axes : 033 -32 013 degrees QTc Int : 416 ms Poor data quality, interpretation may be adversely affected Sinus bradycardia with sinus arrhythmia Left axis deviation Poor R wave progression, consider anterior CO vs. lead placement vs. LVH Abnormal ECG No previous ECGs available Confirmed by Gen Bahena ([id number]) on 04/01/2021 4:57:22 PM Referred By: Ramos Rosales Confirmed By:Ismael Bahena
[2022-10-09] MEDS ORDERED: MIDAZOLAM HCL 1 MG/ML 2ML VIAL ONE (23:32)
[2022-10-09] MEDS ORDERED: fentaNYL citrate 100 MCG/2 ML VIAL ONE (23:32)
[2022-10-09] MEDS ORDERED: PROPOFOL IV EMULSION 10 MG/ML 20 ML VIAL IV ONE (23:32)
[2022-10-09] MEDS ORDERED: LIDOCAINE 2% MPF LOCAL 5 ML VIAL INFIL ONE (23:35)
[2022-10-09] MEDS ORDERED: DEXAMETHASONE SOD INJ 4 MG/ML VIAL ONE (23:35)
[2022-10-09] MEDS ORDERED: ONDANSETRON INJ 2 MG/ML 2 ML VIAL ONE (23:35)
[2022-10-09] MEDS ORDERED: SUCCINYLCHOLINE CHLORIDE 20 MG/ML 10 ML VIAL IV ONE (23:35)
[2022-10-10] MEDS ORDERED: PHENYLEPHRINE 100MCG/ML 5ML SYR ONE (00:07)
[2022-10-10] MEDS ORDERED: VASOPRESSIN 20 UNIT/ML VIAL ONE (00:16)
[2022-10-10] MEDS ORDERED: OXYTOCIN 10 UNITS/ML 10ML VIAL ONE (00:17)
--- NOTE | 2022-10-10 00:30 | Post Operative Brief Note ---
Immediate Post Op Note v1 Date of Surgery October 10, 2022 Pre & Post Diagnosis Operation Date: 10/09/22 23:45 <No data on this case meets the specified criteria> I identified the patient and participated in the time-out.: Yes Procedure Operation Date: 10/09/22 23:45 <No data on this case meets the specified criteria> Surgeon Ramos Rosales MD Move Coordinator none Estimated Blood Loss 100 Findings Consistent with Post-Op Diagnosis products of conception Fluids LR 1500 ml. Specimens products of conception Complications none Disposition Accompanied Patient To Recovery: Yes Overlapping Procedure I was present for: the critical portions of procedure. I was immediately available: during the entire case. Back up surgeon: was not required during procedure.
[2022-10-10] MEDS ORDERED: IBUPROFEN 600 MG TAB PO PRN (00:33)
[2022-10-10] MEDS ORDERED: KETOROLAC 30 MG/ML VIAL IV PRN (00:33)
[2022-10-10] MEDS ORDERED: oxyCODONE HCL IR 5 MG TAB (IMMEDIATE RELEASE) PO PRN (00:33)
--- NOTE | 2022-10-10 01:07 | Anesthesiology Progress Note ---
Date of Service October 10, 2022 Anesthesia Post Procedure Vital Signs Vital Signs: Temp Pulse Pulse Resp BP BP Pulse Ox 10/10/22 00:57 36.6 C 88 17 109/54 L 100 10/10/22 00:47 36.5 C 100 H 19 107/66 99 10/10/22 00:38 36.6 C 106 H 19 107/51 L 99 10/09/22 23:00 90 20 77/46 L 10/09/22 22:30 88 18 82/48 L 10/09/22 22:00 95 H 17 88/50 L 10/09/22 21:30 84 22 90/63 L 10/09/22 21:05 103 H 24 91/66 L 10/09/22 19:30 98 H 13 93/49 L 100 10/09/22 18:54 97 10/09/22 19:23 36.7 C 77 18 101/59 L 99 O2 Del Method 10/10/22 00:57 Room Air 10/10/22 00:47 Room Air 10/10/22 00:38 Room Air 10/09/22 23:00 10/09/22 22:30 10/09/22 22:00 10/09/22 21:30 10/09/22 21:05 10/09/22 19:30 10/09/22 18:54 Room Air 10/09/22 19:23 Room Air Pain Intensity Abdomen: Pain Intensity: 0 Transfer of Care Handoff Completed per policy Notes Mental Status: alert / awake / arousable Patient Amnestic to Procedure: Yes Nausea / Vomiting: adequately controlled Pain: adequately controlled Airway Patency, RR, SpO2: stable & adequate BP & HR: stable & adequate Hydration State: stable & adequate Anesthetic Complications: no major complications apparent and Pt Satisfied with anesthetic care
--- NOTE | 2022-10-10 01:43 | Operative Report (OR) ---
DATE OF SURGERY: 10/10/2022. PREOPERATIVE DIAGNOSIS: Incomplete . POSTOPERATIVE DIAGNOSIS: Incomplete . PROCEDURE: Dilation and evacuation. SURGEON: Ramos Rosales MD. TALENT CONSULTANT: None. ANESTHESIA: General. COMPLICATIONS: None. ESTIMATED BLOOD LOSS: 100 mL. TOTAL FLUIDS: 1500 mL. URINE OUTPUT: 300 mL. FINDINGS: Products of conception. CLINICAL HISTORY: The patient is a 31-year-old female, para 2-0-0-2, approximately 8 weeks' gestatio n with twin gestation, noted to have increased bleeding with decreasing hCG and heavy bleeding today. The patient presents to the ER with large clots, heavy vaginal bleeding. Products of conception at os. The patient was taken to the OR for D and E. DESCRIPTION OF PROCEDURE: Under satisfactory general anesthesia, the patient was prepped and draped in the usual sterile fashion. Exam under anesthesia revealed the uterus to be approximately 8-10 wee k size. A 300 mL of clear urine was drained from the bladder. Weighted speculum was placed in the p osterior vault of the vagina. A single large Allis clamp was used to grasp the anterior lip of the c ervix. The cervix and uterus were then sounded to approximately 10 cm. #8 curved curette was then i ntroduced curetting and suctioning out products of conception. Following this, a sharp endometrial c urette was then used, curetting out minimal amounts of tissue. No active bleeding was noted at the e nd of the procedure, 20 units of Pitocin was then started. The patient was A positive, will not rece janett RhoGAM. All remaining instruments were then removed. The final sponge, needle and instrument co unts were found to be correct. The patient was then taken to the ICU recovery room in stable conditi on. Job ID: [id number]
[2022-10-10] MEDS ORDERED: OXYTOCIN 20 UNITS in LACTATED RINGER'S 1,000 ML IV SCH (01:45)
[2022-10-10 02:42] LABS: Hematocrit (blood only) 25.9 % (34.1-44.9); Hemoglobin 8.6 g/dl (12.0-16.0)
[2022-10-10] MEDS ORDERED: PRENATAL VITAMIN 1 TAB PO SCH (08:00)
--- NOTE | 2022-10-25 08:04 | Discharge Summary (DS) ---
REASON FOR ADMISSION AND HOSPITAL COURSE: The patient is a 31-year-old female, para 2-0-0-2, approxi mately 8 weeks' gestation, presents with twin gestation with an incomplete after having heav y bleeding. The patient was seen in the ER, products of conception were noted at the os. D and E wa s performed. No complications were noted. Blood loss was 100 mL. The specimen was submitted to path ology as a separate specimen. The patient was discharged home in stable condition. Home going instr uctions were given. CONDITION ON DISCHARGE: Stable. DIET: Regular diet on discharge. MEDICATIONS: Motrin for pain. FOLLOWUP: Will be in the office in 2 weeks for postop check. Job ID: [id number]
== END 2022-10-10 13:55 | disposition home or self-care (01) ==
LOC: ED 18:34 → INTOOBSV 22:41 → OR 23:33 → 4E1 23:34 → OR 10-10 00:03
DX: O03.4 Incomplete spontaneous abortion without complication

== ENCOUNTER 2023-08-22 07:58 | Inpatient (IN) ==
[2023-08-22] MEDS ORDERED: SODIUM CHLORIDE 0.9% 250 ML IV PRN (09:02)
[2023-08-22] MEDS ORDERED: LIDOCAINE 1% LOCAL 20 ML VIAL INFIL PRN (09:52)
[2023-08-22] MEDS ORDERED: OXYTOCIN 30 UNITS/500 ML BAG IV PRN ×2 (09:52→21:49)
[2023-08-22] MEDS: LACTATED RINGER'S 1,000 ML IV PRN ×2 (10:10→23:41)
[2023-08-22] MEDS: miSOPROStoL 50 MCG TAB PO PRN ×3 (10:17→18:50)
--- NOTE | 2023-08-22 10:20 | History & Physical Report ---
Date of Service August 22, 2023 Assessment & Plan (1) Elevated blood pressure reading: Plan: Cytotec for cervical ripening (2) History of pre-eclampsia in prior , currently in third trimester: Admission and Anticipated Discharge Date Admission Date: August 22, 2023 History of Present Illness Chief Complaint: induction of labor for gestational hypertension Primary Care Provider: Sanjay Lafleur MD 32 F P0000 at 37.4 weeks admitted for IOL for gestational hypertension. Allergies Allergy/AdvReac Type Severity Reaction Status Date / Time No Known Allergies Allergy Verified 10/09/22 20:16 Home Medications Medication Instructions Recorded Confirmed Type vit no.133-ferrous 1 tab PO DAILY 03/31/21 08/22/23 History fumarate 28 mg-folic acid 800 mcg tablet () aspirin 81 mg tablet 81 mg PO DAILY 08/22/23 08/22/23 History Patient History Medical History hemorrhage Preeclampsia with 36 completed weeks gestation Surgical History Cyst of ear canal Family History Grandfather Family history of diabetes mellitus Cancer Grandmother Family history of diabetes mellitus Social History Smoking Status: Never smoker Second Hand Exposure: No; Do You Dip or Chew Tobacco: No; Hx Alcohol Use: No Hx Substance Use: No Preferred Language: Qatari Communication Ability: Effective Firmware Manager Required: No Beliefs That Will Affect Care: None marital status: Current Living Situation: Family Current Living Situation Comment: Lives with , 2 children, 1 dog, and 2 cats. current occupational status: employed current occupation: technical education teacher Other Information That Helps Us Care for You: No Feels Safe at Home: Yes Safety Concerns: Feels Safe At This Time Assistive Devices: None OB History x2 history of [facility] History D&E x1 Review of Systems All systems reviewed & are unremarkable except as noted in HPI & below Physical Exam Constitutional: WD/WN, vitals as above Eyes: PERRL, conjunctivae normal, anicteric sclerae Respiratory: normal respiratory effort, lungs clear to auscultation Cardiovascular: RRR, no murmur, no edema Gastrointestinal (Abdomen): Inspection/Auscultation: abdomen normal to inspection Musculoskeletal: Extremities: extremities normal to inspection Skin: no rashes, warm and dry Neurologic: patellar DTR's 2+ bilat, sensation intact Psychiatric: A+Ox3, euthymic affect Genitourinary: no vaginal lesions, no adnexal mass normal external appearance OB Exam Abdomen: + fundal height and + vertex Manual OB Exam: + cervical dilation fingertip, + cervical effacement 50% and + station high OB Exam Monitor Tracing: + external FHT monitor used, + external uterine monitor used, + category I and + normal FHT variability posterior, soft, EFW 7.5-8 lbs. Results & Data Vital Signs (Past 12 Hours) Vital Signs Temp Pulse Resp BP 08/22/23 08:43 36.5 C 90 18 124/86 08/22/23 08:31 90 124/86 Laboratory Results Laboratory Results - last 72 hr 08/22/23 09:28 Crossmatch See Detail Code Status & VTE Plan VTE Prophylaxis Plan VTE Prophylaxis will be ordered: No Monitoring External Monitor Cat 1
[2023-08-22 10:31] LABS: Hematocrit (blood only) 38.1 % (37.0-47.0); Hemoglobin 13.1 g/dl (12.0-16.0); Mean Corpuscular Hemoglobin 29.8 pg (25.0-34.0); Mean Corpuscular Hgb Conc 34.4 g/dL (32.0-36.0); Mean Corpuscular Volume 86.8 fL (80.0-100.0); Mean Platelet Volume 10.8 fL (9.4-12.4); Platelet Count 234 K/uL (130-400); RDW Coefficient of Variation 13.3 % (11.5-14.5); RDW Standard Deviation 41.7 fL (36.4-46.3); Red Blood Count 4.39 M/uL (4.20-5.40); White Blood Count 12.14 K/ul (4.8-10.8)
--- NOTE | 2023-08-22 18:51 | Labor Progress Brief Note ---
Date of Service August 22, 2023 Assessment & Plan Admission and Anticipated Discharge Date Admission Date: August 22, 2023 Physical Exam Genitourinary: Manual OB Exam: + cervical dilation 1 cm and 2 cm, + cervical effacement 50% and + station high OB Exam Monitor Tracing: + external FHT monitor used, + external uterine monitor used, + category I and + normal FHT variability Will continue Cytotec for ripening Results & Data Vital Signs (Past 12 Hours) Vital Signs Temp Pulse Resp BP 08/22/23 14:16 98 H 08/22/23 14:16 120/78 08/22/23 14:16 18 08/22/23 14:16 36.9 C 18 08/22/23 14:16 98 H 08/22/23 14:16 120/78 08/22/23 12:01 85 08/22/23 12:01 137/72 08/22/23 12:01 18 08/22/23 12:01 36.6 C 18 08/22/23 12:01 85 08/22/23 12:01 137/72 08/22/23 08:43 36.5 C 90 18 124/86 08/22/23 08:31 90 08/22/23 08:31 124/86 08/22/23 08:31 36.5 C 90 18 124/86
[2023-08-23] MEDS ORDERED: TERBUTALINE SULFATE 1 MG/ML VIAL ONE (00:12)
[2023-08-23] MEDS ORDERED: TERBUTALINE SULFATE 1 MG/ML VIAL SQ ONE (00:15)
[2023-08-23] MEDS: LACTATED RINGER'S 1,000 ML IV PRN ×3 (03:16→18:58)
[2023-08-23] MEDS ORDERED: BUPIVACAINE 0.25% PF 30 ML VIAL ONE (07:55)
[2023-08-23] MEDS ORDERED: ePHEDrine sulfate 50 MG/ML AMP ONE (07:55)
[2023-08-23] MEDS ORDERED: SODIUM CHLORIDE 0.9% PF INJ 10 ML VIAL ONE (07:55)
[2023-08-23] MEDS ORDERED: fentaNYL citrate PF 100 MCG/2 ML VIAL ONE (07:55)
[2023-08-23] MEDS ORDERED: LIDOCAINE 2%/EPINEPHRINE 1:200,000 20 ML PF ONE (07:55)
[2023-08-23] MEDS ORDERED: fentANYL 2 MCG/ML BUPIVacaine 0.125%-NSS 100ML BAG ONE (07:55)
[2023-08-23] MEDS: ACETAMINOPHEN 325 MG TAB PO PRN ×2 (08:01→13:06)
[2023-08-23] MEDS ORDERED: NALBUPHINE HCL 5 MG in SYRINGE 0 ML IV PRN (08:24)
[2023-08-23] MEDS ORDERED: SODIUM CHLORIDE 0.9% PF INJ 10 ML VIAL EPI STA (08:24)
[2023-08-23] MEDS ORDERED: fentANYL 2 MCG/ML BUPIVacaine 0.125%-NSS 100ML BAG EPI PRN (08:24)
[2023-08-23] MEDS ORDERED: ePHEDrine sulfate 50 MG/ML AMP IV PRN (08:24)
[2023-08-23] MEDS ORDERED: SODIUM CHLORIDE 0.9% PF INJ 10 ML VIAL EPI PRN (08:24)
[2023-08-23] MEDS ORDERED: diphenhydrAMINE 50 MG/ML VIAL IV PRN (08:24)
[2023-08-23] MEDS ORDERED: BUPIVACAINE 0.25% PF 30 ML VIAL EPI STA (08:24)
[2023-08-23] MEDS ORDERED: ROPIVACAINE 0.5% PF 5 MG/ML 20 ML VIAL EPI PRN (08:24)
[2023-08-23] MEDS ORDERED: LIDOCAINE 2% MPF LOCAL 5 ML VIAL EPI PRN (08:24)
[2023-08-23] MEDS ORDERED: ONDANSETRON INJ 2 MG/ML 2 ML VIAL IV PRN (08:24)
[2023-08-23] MEDS ORDERED: fentaNYL citrate PF 100 MCG/2 ML VIAL EPI STA (08:24)
[2023-08-23] MEDS ORDERED: NALOXONE HCL 0.4 MG/1 ML VIAL/CARP IV PRN (08:24)
[2023-08-23] MEDS ORDERED: NALOXONE HCL 1 MG in SODIUM CHLORIDE 0.9% 1,000 ML IV PRN (08:24)
[2023-08-23] MEDS ORDERED: fentaNYL citrate PF 100 MCG/2 ML VIAL EPI PRN (08:24)
[2023-08-23] MEDS ORDERED: LIDOCAINE 2%/EPINEPHRINE 1:200,000 20 ML PF EPI STA (08:24)
[2023-08-23] MEDS ORDERED: BUPIVACAINE 0.25% PF 30 ML VIAL EPI PRN (08:24)
--- NOTE | 2023-08-23 09:20 | Obstetrical Progress Note ---
Date of Service August 23, 2023 Assessment & Plan Admission and Anticipated Discharge Date Admission Date: August 22, 2023 Subjective Patient is seen and examined. Induction of labor for gestational hypertension, status post p.o. Cytotec and now on IV oxytocin per protocol. She has received epidural for pain and now comfortable. Vital signs stable afebrile, heart rate category 1, Vaginal exam, cervix is 3 cm dilated, thick about 20% effaced, posterior, -3, Plan to continue with IV oxytocin per protocol, AROM when able Continue to monitor closely Results & Data Vital Signs (Past 12 Hours) Vital Signs Temp Pulse Resp BP 08/23/23 09:14 86 114/58 L 08/23/23 09:09 74 111/59 L 08/23/23 09:04 75 111/65 08/23/23 09:00 18 08/23/23 09:00 18 08/23/23 08:59 78 115/65 08/23/23 08:54 83 108/65 08/23/23 08:51 83 119/78 08/23/23 08:43 76 107/56 L 08/23/23 08:41 86 123/59 L 08/23/23 08:39 91 H 118/60 08/23/23 08:37 78 129/87 08/23/23 08:35 90 140/118 H 08/23/23 08:27 18 08/23/23 08:27 18 08/23/23 08:26 88 124/76 08/23/23 07:26 75 129/73 08/23/23 07:08 18 08/23/23 07:08 36.9 C 18 08/23/23 07:05 36.9 C 18 08/23/23 06:25 72 18 119/82 08/23/23 05:26 105 H 18 131/74 08/23/23 04:25 84 18 106/61 08/23/23 03:26 36.4 C L 69 18 121/58 L 08/23/23 01:28 82 18 122/70 08/22/23 23:20 18 08/22/23 23:20 36.8 C 18 08/22/23 23:20 65 08/22/23 23:20 123/81
--- NOTE | 2023-08-23 16:49 | Obstetrical Progress Note ---
Date of Service August 23, 2023 Assessment & Plan Admission and Anticipated Discharge Date Admission Date: August 22, 2023 Subjective Patient was related. She has been on oxytocin at 19 MIU/ per minute, head has been high, cervix has been 3 to 4 cm and take per her nursing team. heart rate category 1, toco with contractions every 2 to 3 minutes. Patient exam is done by myself, cervix is still high 3 to 4 cm, 30% effaced head is -3 station, by fundal pressure and contractions 8 artificial rupture of membranes was done and abundant clear fluid was obtained. Continue to monitor closely and adjust in Pitocin dose as needed. Results & Data Vital Signs (Past 12 Hours) Vital Signs Temp Pulse Resp BP 08/23/23 16:36 89 114/67 08/23/23 16:20 73 114/70 08/23/23 16:05 71 112/79 08/23/23 16:00 18 08/23/23 16:00 18 08/23/23 15:50 90 121/75 08/23/23 15:35 71 119/70 08/23/23 15:30 18 08/23/23 15:30 18 08/23/23 15:20 71 120/57 L 08/23/23 15:07 83 133/64 08/23/23 15:00 18 08/23/23 15:00 18 08/23/23 14:50 95 H 111/64 08/23/23 14:35 75 109/60 08/23/23 14:30 18 08/23/23 14:30 18 08/23/23 14:20 90 108/70 08/23/23 14:06 78 119/73 08/23/23 14:00 18 08/23/23 14:00 36.7 C 18 08/23/23 13:50 81 126/76 08/23/23 13:36 80 111/71 08/23/23 13:30 18 08/23/23 13:30 18 08/23/23 13:20 83 120/73 08/23/23 13:07 90 131/97 08/23/23 13:00 18 08/23/23 13:00 18 08/23/23 12:51 76 120/71 08/23/23 12:36 91 H 122/82 08/23/23 12:20 81 126/74 08/23/23 12:05 74 129/73 08/23/23 11:35 75 135/83 08/23/23 11:20 65 129/85 08/23/23 11:07 70 133/71 08/23/23 11:00 18 08/23/23 11:00 18 08/23/23 10:50 68 129/81 08/23/23 10:35 75 131/76 08/23/23 10:30 18 08/23/23 10:30 36.7 C 18 08/23/23 10:15 75 104/63 08/23/23 10:09 72 105/65 08/23/23 10:06 72 105/57 L 08/23/23 10:00 76 18 109/64 08/23/23 09:56 83 100/69 08/23/23 09:50 68 105/51 L 08/23/23 09:44 67 105/57 L 08/23/23 09:41 74 105/56 L 08/23/23 09:34 74 104/54 L 08/23/23 09:32 77 108/58 L 08/23/23 09:30 18 08/23/23 09:30 18 08/23/23 09:26 73 104/59 L 08/23/23 09:20 75 108/71 08/23/23 09:14 86 114/58 L 08/23/23 09:09 74 111/59 L 08/23/23 09:04 75 111/65 08/23/23 09:00 18 08/23/23 09:00 18 08/23/23 08:59 78 115/65 08/23/23 08:54 83 108/65 08/23/23 08:51 83 119/78 08/23/23 08:43 76 107/56 L 08/23/23 08:41 86 123/59 L 08/23/23 08:39 91 H 118/60 08/23/23 08:37 78 129/87 08/23/23 08:35 90 140/118 H 08/23/23 08:27 18 08/23/23 08:27 18 08/23/23 08:26 88 124/76 08/23/23 07:26 75 129/73 08/23/23 07:08 18 08/23/23 07:08 36.9 C 18 08/23/23 07:05 36.9 C 18 08/23/23 06:25 72 18 119/82 08/23/23 05:26 105 H 18 131/74
--- NOTE | 2023-08-23 18:54 | Anesthesiology Consultation ---
Date of Service August 23, 2023 Assessment & Plan Chart Review Chart Review: Patient NOT seen in Pre Admission Testing and Acceptable Risk for Labor Epidural Consults Requested none ASA ASA2 Proposed Anesthesia Anesthesia Type: Labor Epidural Risk / Benefits Reviewed With: PT / POA / Parent / Guardian, Accepts Plan and Informed Consent Obtained History Height/Weight Height: 5 ft 5 in Weight: 103.873 kg Allergies Allergy/AdvReac Type Severity Reaction Status Date / Time No Known Allergies Allergy Verified 10/09/22 20:16 Medications Home Medications Medication Instructions Recorded Confirmed Last Taken vit no.133-ferrous 1 tab PO DAILY 03/31/21 08/22/23 08/21/23 fumarate 28 mg-folic acid 800 mcg tablet () aspirin 81 mg tablet 81 mg PO DAILY 08/22/23 08/22/23 08/20/23 Active Medications Generic Name Dose Route Start Last Admin Trade Name Freq PRN Reason Stop Dose Admin Acetaminophen 650 mg 08/23/23 07:43 08/23/23 13:06 Acetaminophen 325 Mg Tab PO 09/22/23 07:42 650 mg Q4H PRN Administration Headache Fentanyl/Bupivacaine/Sodium Chlor 100 ml 08/23/23 08:24 08/23/23 18:29 Fentanyl 2 Mcg/Ml Bupivacaine 0.125%-Nss 100ml Bag EPI 08/24/23 08:23 100 ml PRN PRN Administration Pain R/T Labor Protocol Lactated Ringer's 1,000 mls @ 125 mls/hr 08/22/23 09:52 08/23/23 11:46 Lr IV 08/24/23 09:51 125 mls/hr .Q8H PRN Administration L&D Protocol Protocol Oxytocin 30 units in 500 mls @ 19 mls/hr 08/22/23 21:49 08/23/23 12:30 Pitocin IV 08/24/23 21:48 1.14 units/hr .Q24H PRN 19 mls/hr Labor Induction/Augmentation Titration Protocol 1.14 UNITS/HR Misoprostol 50 mcg 08/22/23 09:52 08/22/23 18:50 Misoprostol 50 Mcg Tab PO 09/21/23 09:51 50 mcg Q4 PRN Administration Uterine Cramping Past Medical History Medical History hemorrhage Preeclampsia with 36 completed weeks gestation Exercise / Class Metabolic Activity II 4-5 Yardwork/Stairs/Walk up hill Past Family History Family History Grandfather Family history of diabetes mellitus Cancer Grandmother Family history of diabetes mellitus Past Surgical History Surgical History Cyst of ear canal Past Anesthesia History No Hx of Anesthesia Complications and No Family Hx of Anesthesia Complications History of PONV No Hx of PONV and No Hx of Motion Sickness Social History Smoking Status: Never smoker Do You Dip or Chew Tobacco: No Hx Alcohol Use: No Hx Substance Use: No substance use type: does not use Physical Exam Vital Signs Last Vital Signs Temp 36.8 C 08/23/23 17:00 Pulse 83 08/23/23 18:52 Resp 18 08/23/23 18:30 BP 129/77 08/23/23 18:50 Pulse Ox 98 08/23/23 18:52 ENMT Mouth: no dentition abnormality Thyromental Distance: > or= 3.5 Finger Breadths Mallampati Class: II Neck normal visual inspection Respiratory normal respiratory effort Auscultation: lungs clear to auscultation bilaterally Cardiovascular Rate/Rhythm: regular rate and regular rhythm Psychiatric Orientation: alert Testing Laboratory Results 08/22/23 09:30 Blood Type A Positive 08/22/23 09:28 Antibody Screen NEGATIVE 08/22/23 09:28
[2023-08-23] MEDS ORDERED: ACETAMINOPHEN 325 MG TAB PO PRN (20:24)
[2023-08-23] MEDS ORDERED: bisacodyL 10 MG SUPP PR PRN (20:24)
[2023-08-23] MEDS ORDERED: DIPHTHERIA/TETANUS/PERTUSSIS Vaccine (Tdap, Age 7+yrs) 0.5mL SYR/VL IM ONE (20:24)
[2023-08-23] MEDS ORDERED: HYDROCORTISONE ACETATE 25 MG SUPP PR PRN (20:24)
[2023-08-23] MEDS ORDERED: BENZOCAINE 20% SPRY 85 APPLN/85 GM CAN EXT PRN (20:24)
[2023-08-23] MEDS ORDERED: OXYTOCIN 30 UNITS/500 ML BAG IV PRN (20:24)
[2023-08-23] MEDS ORDERED: oxyCODONE/ACETAMINOPHEN 5mg/325mg TAB PO PRN (20:24)
[2023-08-23] MEDS ORDERED: MEASLES, MUMPS & RUBELLA VIRUS VACCINE (MMR) VIAL SQ ONE (20:24)
--- NOTE | 2023-08-23 20:32 | Delivery Summary ---
Vaginal Delivery Summary Date of Service August 23, 2023 Vaginal Delivery Summary Patient was found to be fully dilated and desires to push. She pushed for about 6 min and delivered the head and then shoulders with minimal traction. The baby was handed off to the mother. The cord was clampedx2 and cut at 1 minute. The vagina and perineum were checked and found to have 1ST degree perineal laceration. It was repaired with 3/0 vicryl. The placenta was delivered spontaneously as intact and complete. The uterus was explored and found to be empty. EBL was 200 ml. The fundus was firm The baby was a viable male , Apgars 8/8, the weight is pending The mother and the baby tolerated the procedure well. No complications happened and I was present during whole procedure.
--- NOTE | 2023-08-23 23:13 | Anesthesia Procedure Note ---
Date of Service August 23, 2023 Anesthesia Post Epidural Note Vital Signs Vital Signs: Temp Pulse Resp BP Pulse Ox 36.9 C 78 18 120/63 96 08/23/23 18:50 08/23/23 22:50 08/23/23 22:20 08/23/23 22:50 08/23/23 20:17 Pain Intensity Abdomen: Pain Intensity: 5 Notes Mental Status: alert / awake / arousable Nausea / Vomiting: adequately controlled Pain: adequately controlled Airway Patency, RR, SpO2: stable & adequate BP & HR: stable & adequate Hydration State: stable & adequate Neuraxial Anesthesia: was administered and sensory block is resolving Anesthetic Complications: no major complications apparent and Pt Satisfied with anesthetic care Epidural: Removed without complications and With tip intact
[2023-08-23] MEDS: IBUPROFEN 600 MG TAB PO PRN (23:32)
[2023-08-24] MEDS: IBUPROFEN 600 MG TAB PO PRN ×4 (04:23→21:10)
[2023-08-24 06:43] LABS: Hemoglobin 11.4 g/dl (12.0-16.0); Mean Corpuscular Hgb Conc 33.5 g/dL (32.0-36.0); Mean Corpuscular Volume 89.5 fL (80.0-100.0); Mean Platelet Volume 10.9 fL (9.4-12.4); Platelet Count 197 K/uL (130-400); RDW Coefficient of Variation 13.2 % (11.5-14.5); RDW Standard Deviation 43.2 fL (36.4-46.3); White Blood Count 13.63 K/ul (4.8-10.8)
--- NOTE | 2023-08-24 08:14 | Obstetrical Progress Note ---
Date of Service August 24, 2023 Assessment & Plan (1) Normal course: Continue routine PP course anticipate d/c home tomorrow (2) Preeclampsia: Subjective Ambulation: ambulating normally Voiding: no voiding problems Passing Gas:: Yes Diet Tolerance:: regular diet Lochia:: Moderate Feeding Type:: breast feeding Current Pain Level(1-10): 0 Doing well, no complaints at this time Physical Exam Constitutional WD/WN, vitals as above Respiratory normal respiratory effort, lungs clear to auscultation Cardiovascular RRR, no murmur, no edema Gastrointestinal (Abdomen) normal bowel sounds, soft, nontender, no hepatosplenomegaly Results & Data Vital Signs (Past 12 Hours) Vital Signs Temp Pulse Pulse Resp BP BP Pulse Ox 08/24/23 04:03 36.5 C 79 18 124/80 97 08/23/23 23:28 36.5 C 72 18 133/85 97 08/23/23 22:50 78 120/63 08/23/23 22:35 86 130/72 08/23/23 22:20 86 18 126/66 08/23/23 22:05 75 130/73 08/23/23 21:50 78 18 129/77 08/23/23 21:35 73 128/72 08/23/23 21:20 77 18 140/69 08/23/23 21:05 83 18 125/59 L 08/23/23 20:50 80 18 120/60 08/23/23 20:37 87 18 134/60 08/23/23 20:20 101 H 18 124/58 L 08/23/23 20:17 84 96 O2 Del Method 08/24/23 04:03 Room Air 08/23/23 23:28 Room Air 08/23/23 22:50 08/23/23 22:35 08/23/23 22:20 08/23/23 22:05 08/23/23 21:50 08/23/23 21:35 08/23/23 21:20 08/23/23 21:05 08/23/23 20:50 08/23/23 20:37 08/23/23 20:20 08/23/23 20:17 Laboratory Results Laboratory Results WBC 13.63 K/ul (4.8-10.8) H 08/24/23 05:49 RBC 3.80 M/uL (4.20-5.40) L 08/24/23 05:49 Hgb 11.4 g/dl (12.0-16.0) L 08/24/23 05:49 Hct 34.0 % (37.0-47.0) L 08/24/23 05:49 MCV 89.5 fL (80.0-100.0) 08/24/23 05:49 MCH 30.0 pg (25.0-34.0) 08/24/23 05:49 MCHC 33.5 g/dL (32.0-36.0) 08/24/23 05:49 RDW Std Deviation 43.2 fL (36.4-46.3) 08/24/23 05:49 RDW Coeff of Praveena 13.2 % (11.5-14.5) 08/24/23 05:49 Plt Count 197 K/uL (130-400) 08/24/23 05:49 MPV 10.9 fL (9.4-12.4) 08/24/23 05:49 Blood Type A Positive 08/22/23 09:28 Antibody Screen NEGATIVE 08/22/23 09:28 Crossmatch See Detail 08/22/23 09:28
[2023-08-24] MEDS: FERROUS SULFATE 325 MG TAB PO SCH (08:56)
[2023-08-24] MEDS: DOCUSATE SODIUM 100 MG CAP PO SCH ×2 (08:56→21:10)
[2023-08-24] MEDS: PRENATAL VITAMIN 1 TAB PO SCH (08:56)
--- NOTE | 2023-08-24 12:59 | Progress Note ---
Date of Service August 24, 2023 Assessment & Plan (1) Sterilization consult: Plan: Discussed with patient that sterilization is a permanent procedure and she has no desire for future fertility. Explained that partner vasectomy is a safe and effective form of sterility as well. She would like to proceed with sterilization procedure for herself at this time. There is a risk of infection, bleeding, hernia formation, pain, risk of injury to bowel/bladder/ut erus/ureters/ovary/nerves/vessels/cervix/vagina that may require additional surgery, DVT/PE, MO and stroke. She is aware that this would be elective procedure. Would recommend performing this at least 6 weeks We will give information to the OR hotel night auditor to schedule outpatient surgery at [facility] for laparoscopic bilateral salpingectomy Patient voiced her understanding and agreement with the plan. All questions answered in the room Admission and Anticipated Discharge Date Admission Date: August 22, 2023 Subjective Noted patient was interested in bilateral tubal for sterilization Patient is still interested with permanent sterility at this time. Results & Data Vital Signs (Past 12 Hours) Vital Signs Temp Pulse Resp BP Pulse Ox O2 Del Method 08/24/23 11:30 36.5 C 68 18 134/91 99 Room Air 08/24/23 07:50 36.4 C L 69 18 134/89 98 Room Air 08/24/23 04:03 36.5 C 79 18 124/80 97 Room Air
[2023-08-24] MEDS ORDERED: NIFEdipine EXTENDED REL 30 MG TABCR PO STA (16:00)
[2023-08-24] MEDS ORDERED: bisacodyL 5 MG TABEC PO SCH (20:00)
[2023-08-25 08:44] LABS: Hematocrit (blood only) 38.6 % (37.0-47.0); Hemoglobin 12.7 g/dl (12.0-16.0)
[2023-08-25] MEDS ORDERED: NIFEdipine EXTENDED REL 30 MG TABCR PO SCH (09:00)
[2023-08-25] MEDS: FERROUS SULFATE 325 MG TAB PO SCH (09:48)
[2023-08-25] MEDS: PRENATAL VITAMIN 1 TAB PO SCH (09:48)
[2023-08-25] MEDS: DOCUSATE SODIUM 100 MG CAP PO SCH (09:49)
--- NOTE | 2023-08-25 09:50 | Obstetrical Progress Note ---
Date of Service August 25, 2023 Assessment & Plan (1) Normal course: pt doing well wishes to be discharged home Subjective Ambulation: ambulating normally Voiding: no voiding problems Passing Gas:: Yes Diet Tolerance:: regular diet Lochia:: Small Feeding Type:: breast feeding Review of Systems All systems reviewed & are unremarkable except as noted in HPI & below Physical Exam Constitutional WD/WN, vitals as above well developed and well nourished Eyes PERRL, conjunctivae normal, anicteric sclerae Neck trachea midline, no thyromegaly Respiratory normal respiratory effort, lungs clear to auscultation Auscultation: no crackles, no rales and no wheezes Cardiovascular RRR, no murmur, no edema Gastrointestinal (Abdomen) normal bowel sounds, soft, nontender, no hepatosplenomegaly Uterus is below umbilicus Musculoskeletal no cyanosis or clubbing, extremities motor strength 5/5 Skin no rashes, warm and dry Neurologic patellar DTR's 2+ bilat, sensation intact Psychiatric A+Ox3, euthymic affect Genitourinary normal external appearance Results & Data Vital Signs (Past 12 Hours) Vital Signs Temp Pulse Resp BP O2 Del Method 08/25/23 03:20 71 123/83 08/25/23 00:05 36.5 C 79 16 123/88 Room Air
[2023-08-25] MEDS: IBUPROFEN 600 MG TAB PO PRN ×3 (09:51→18:31)
[2023-08-25] MEDS ORDERED: MEASLES, MUMPS & RUBELLA VIRUS VACCINE (MMR) VIAL ONE (17:17)
--- OUTSIDE RECORDS SUMMARY | 2023-08-26 09:56 | External Medical Summary | Summary of Care ---
Author Name Unknown Organization [facility] Address [address] [place] [address] Phone [phone] Care Team Providers Care Karate Black Belt Name Role Phone Sanjay Lafleur MD Primary Care Provider [phone] Encounter Details Date Type Department Care Team (Late st Contact Info) Description 08/21/2023 Orders Only [facility] [address] [place] [address] Irma De Paz CRNP [address] [place] [id number] Allergies Active Allergy Reactions Criticality Noted Date Comments Pollen Other (Please comment) High 06/08/2015 rhinitis documented as of this encounter (statuses as of 08/21/2023) Medications Medication Sig Dispensed Refills Start Date End Date Status Cetirizine HCl (ZYRTEC ALLERGY) 10 MG CapsuleIndications:S easonal allergic rhinitis due to pollen Take 1 Cap by mouth daily. 30 Cap 5 07/23/2019 Active fluticasone (FLONASE) 50 MCG/ACT nasal sprayIndications:Sea jess[place] allergic rhinitis due to pollen Administer 2 Sprays into each nostril daily. 1 Bottle 11 07/23/2019 Active 27-0.8 MG Oral Tablet Take 1 Tablet by mouth daily at noon. 0 Active Aspirin 81 MG Oral Tablet Chewable Take 1 Tablet by mouth in the morning. 0 Active Breast PumpIndications:Supe rvision of high-risk , unspecified trimester For lactating mother. 1 Each 0 07/06/2023 Active documented as of this encounter (statuses as of 08/21/2023) Active Problems Problem Noted Date Diagnosed Date Supervision of high-risk , unspecified trimester 03/06/2023 History of pre-eclampsia 03/06/2023 Overview: Starting ASA 81 mg daily Baseline PEC labs ordered Obesity in 03/06/2023 Overview: Class 1 obese Early gtt ordered History of abnormality in previous , currently 03/06/2023 Overview: Declining MFM at this time. Saw in prior (2nd) for abdominal calcifications. Rubella non-immune status, antepartum 08/24/2020 Thyroid nodule 10/15/2019 Overview: Right side, benign Last Assessment & Plan: Recommend assessing TSH each trimester. Estimated Date of Delivery Comme nts Yes 09/08/2023 Based on Ultraso und documented as of this encounter (statuses as of 08/21/2023) Resolved Problems Problem Noted Date Diagnosed Date Resolved Date Abnormal findings on screening 12/13/2020 04/19/2021 Overview: Abdominal calcification seen on anatomy u/s. Following with MFM: Low risk NIPT noted. CF carrier screening and Toxo IgM noted to be negative. 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 Discussed the risk of transmission in the setting of a primary infection vs secondary/reactivation. She declined to proceed with an amniocentesis and plans to have follow up. Growth every 4 weeks. Genetic screening 09/14/2020 10/14/2020 Overview: Patient has opted to decline genetic screening/testing for aneuploidy at this time. Supervision of other normal 08/23/2020 04/19/2021 Hx of preeclampsia, prior pr egnancy, currently 08/23/2020 04/19/2021 Overview: G1- Patient underwent induction of labor at [facility] at 39 weeks gestation secondary to pre-eclampsia without severe features. She completed baseline pre-eclamptic labs (serum creatinine 0.6, AST 16, ALT 30, platelet count of 278). Early 24hr protein collection wnl Last Assessment & Plan: DISCUSSION: 1. Discussed that the overall recurrence rate for pre-eclampsia is 20%. The recurrence risk of pre-eclampsia is 5-7% if it was uncomplicated pre-eclampsia in the prior . If it was pre-eclampsia with severe features in the prior , the recurrence risk goes up to 30-65%. 2. Explained to patient that risk factors for development of pre-eclampsia include the primigravid state, history of pre-eclampsia in previous , family history of pre-eclampsia, presence of chronic hypertension, increased BMI, multiple gestation, pre-existing maternal renal disease or diabetes, advanced maternal age, antiphospholipid syndrome and other coagulopathies, chronic maternal autoimmune disease, or prolonged interval between pregnancies. 3. Discussed with patient that the risks associated with a diagnosis of pre- eclampsia which is not monitored and not managed appropriately include development of HELLP syndrome or eclampsia (seizures) and end organ damage to liver, brain, kidneys, or fetus (manifested by growth restriction or ), and even maternal . RECOMMENDATIONS: 1. Recommend baseline pre-eclamptic labwork be done early in subsequent pregnancies to include CBC, AST/ALT, creatinine, and 24 hour total urine protein. Patients should be monitored closely in subsequent pregnancies for signs of pre-eclampsia and managed appropriately to reduce the incidence of associated maternal and risks. 2. Reviewed that pre-eclampsia and HELLP are not preventable conditions. There is some evidence that daily ASA 81mg may decrease the risk for recurrence in patients with a history of pre-eclampsia prior to 34 weeks and we recommend that she proceed with starting this therapy after 12 weeks. Carrier of group B Streptococcus 07/04/2018 07/19/2018 , normal first 12/14/201702/2018 Overview: Received Tdap documented as of this encounter (statuses as of 08/21/2023) Immunizations Name Administration Dates Next Due PPD 06/06/2023,06/08/2015,05/19/2014 SEASONAL INFLUENZA, PF, 6 M & Above, IM , (FLULAVAL or FLUZONE) 07/23/2019 TDAP (age 10 and older)(Boostrix) 07/06/2023,11/2020,05/13/2018 documented as of this encounter Social History Tobacco Use Types Packs/Day Years Used Date Smoking Tobacco: Never Smokeless Tobacco: Never Alcohol Use Standard Drinks/Week Comments Not Currently 0 (1 standard drink = 0.6 oz pur e alcohol) PHQ-2 Answer Date Recorded PHQ-2 Score 0 08/30/2018 Hunger Vital Sign Answer Date Recorded Within the past 12 months, y ou worried that your food would run out before you got the money to buy more. Never true 02/27/20 Within the past 12 months, t he food you bought just didn't last and you didn't have money to get more. Never true 02/26/2023 [place] Depression Scale Answer Date Recorded [place] Depression Scale Total 2 08/06/2023 The thought of harming myself has occurred to me . Never 08/06/2023 Estimated Date of Delivery Comme nts Yes 09/08/2023 Based on Ultraso und Sex and Gender Information Value Date Recorded Sex Assigned at Female 02/26/2023 9:36 AM EDT Gender Identity Female 02/26/2023 9:36 AM EDT Sexual Orientation Straight 02/26/2023 9: 36 AM EDT Job Start Date Occupation Industry Not on file Not on file Not on file documented as of this encounter Plan of Treatment Upcoming Encounters Date Type Department Care Team (Late st Contact Info) Description 08/27/2023 7:45 AM EST Office Visit Gynecology/Obstetrics [facility] [address] [place] [address] Catalina Kaur PA-C [address] [place] [phone] 09/03/2023 7:45 AM EST Office Visit Gynecology/Obstetrics [facility] [address] [place] [id number] Catalina Kaur PA-C [address] [place] [id number] Health Maintenance Due Date Last Done Comments Hepatitis B (1 of 3 - 3-dose series) 1992 COVID-19 Vaccine (#1) 04/24/1993 Depression Screening 08/13/2020 08/13/2019 HPV/Co-Test 2022 Influenza Vaccine (FLU shot) (#1) 2023 07/23/2019 Cervical Cancer Screening 05/10/2024 Pap Smear 05/10/2024 05/10/2021, 10/16, 12/11/2014, Additional history exists DTaP,Tdap,and Td Vaccines (4 - Td or Tdap) 07/06/2033 07/06/2023, 01/14/2021, 05/13/2018 GARDASIL-HPV IMMUNIZATION SERIES Aged Out No longer eligible based on patient's age to complete this topic MENINGOCOCCAL (MENACTRA/MENVEO) Aged Out No longer eligible based on patient's age to complete this topic Pneumococcal Vaccine: Pediatrics (0 to 5 Years) and At-Risk Patients (6 to 64 Years) Aged Out No longer eligible based on patient's age to complete this topic documented as of this encounter Medical Devices Not on filedocumented as of this encounter Procedures Procedure Name Priority Date/Time Associated Diagnosis Comments CHEMISTRY-OUTSIDE Routine 08/21/2023 documented in this encounter Results * (ABNORMAL) CHEMISTRY-OUTSIDE (08/21/2023) Not all results display below - see scan for full detail SEE SCAN: URPCR, CMP, PT/INR, PTT, CBCD, UA RFLX MICRO OUTSIDE LAB (SEE SCANNED REPORT) CREATININE-OUTSID E LAB 0.44(L) 0.5 - 1.2 MG/DL OUTSIDE LAB (SEE SCANNED REPORT) EGFR-OUTSIDE LAB 135.5 ML/MIN/1. 73M2 OUTSIDE LAB (SEE SCANNED REPORT) POTASSIUM-OUTSIDE LAB 3.5 3.5 - 5.1 MMOL/L OUTSIDE LAB (SEE SCANNED REPORT) GLUCOSE-OUTSIDE LAB 71 70 - 99 MG/DL OUTSIDE LAB (SEE SCANNED REPORT) HOURS FASTING OUTSID E LAB (SEE SCANNED REPORT) TRIGLYCERIDES-OUT SIDE LAB OUTSIDE LAB (SEE SCANNED REPORT) CHOLESTEROL-OUTSI DE LAB OUTSIDE LAB (SEE SCANNED REPORT) HDL-OUTSIDE LAB OUTS [facility] (SEE SCANNED REPORT) CHOL/HDL RATIO-OUTSIDE LAB OUTSIDE [facility] (SEE SCANNED REPORT) LDL (CALCULATED)-OUTS [facility] OUTSIDE LAB (SEE SCANNED REPORT) LDL (DIRECT MEASURE)-OUTSIDE LAB OUTSIDE LAB (SEE SCANNED REPORT) HEMOGLOBIN, F4R-UOCYSII LAB OUTSIDE LAB (SEE SCANNED REPORT) PHOSPHORUS-OUTSID E LAB OUTSIDE LAB (SEE SCANNED REPORT) PTH-OUTSIDE LAB OUTS [facility] (SEE SCANNED REPORT) MICROALBUMIN RATIO-OUTSIDE LAB OUTSIDE [facility] (SEE SCANNED REPORT) PROTEIN, UA-OUTSIDE LAB OUTSIDE LAB (SEE SCANNED REPORT) HEMOGLOBIN-OUTSID E LAB 13.7 12.0 - 16.0 G/DL OUTSIDE LAB (SEE SCANNED REPORT) 08/21/2023 Joseph Locke MD LABORATORY OUTSIDE LAB (SEE SCANNED REPORT) documented in this encounter Care Teams Karate Black Belt Relationship Specialty Start Date End Date Sanjay Lafleur MD [address] [place] [facility] [place] [id number] PCP - General Family Medicine 12/11/14 documented as of this encounter
== END 2023-08-25 18:36 | disposition home or self-care (01) | DRG 807 ==
LOC: 4S1 07:58 → 4E2 08-23 23:34